=== PATIENT | female | born 1965 | race Caucasian/White ===

== ENCOUNTER → 2017-05-02 | Day surgery (SDC) | payer OTHER ==
[~2017-05-02] VITALS: Ht 162.6 cm; Wt 63.5 kg
[~2017-05-02] MED LIST: ALPR.5 PO; CHLORHEXIDINE GLUCONATE 2 % 1 PACK (2 CLOTHS) TOPICAL PRN; HYDR-3583 PO; HYDROmorphone HCL PF 1 MG/ML VIAL ONE; INSULIN HUMAN REGULAR 1,000 UNITS/10 ML VIAL SQ PRN; KETOROLAC TROMETHAMINE 30 MG/ML (IVP) VIAL ONE; LACTATED RINGER'S 1000 ML IV PRN; METOPROLOL TARTRATE 25 MG TAB PO PRN; MORPHINE SULFATE 4 MG/ML INJ ONE; ONDANSETRON HCL 4 MG/2 ML VIAL IV PUSH ONE; POVIDONE IODINE 5% (ANTISEPSIS KIT) 4 APPLICATIONS EACH NARE PRN; PROPOFOL 200 MG/20 ML AMP IV ONE; SODIUM CHLORID 0.9% 500 ML IV PRN; ceFAZolin 1,000 MG/NS 100 ML IV SCH
[2017-05-02 08:44] LABS: CHLORIDE 105 MEQ/L (98-107); HEMATOCRIT 45.2 % (35.0-46.0); HEMOGLOBIN 14.7 GM/DL (11.6-15.3); MEAN CELL VOLUME 85.4 FL (80.0-100.0); MEAN CORPUSCULAR HEMOGLOBIN 27.8 PG (27.0-34.0); MEAN CORPUSCULAR HGB CONC 32.6 % (32.0-36.0); MEAN PLATELET VOLUME 7.3 FL (7.0-11.0); PLATELET COUNT 268 TH/MM3 (150-450); RED BLOOD COUNT 5.29 MIL/MM3 (4.00-5.30); RED CELL DISTRIBUTION WIDTH 13.8 % (11.6-17.2); SODIUM (NA) 139 MEQ/L (136-145); WHITE BLOOD COUNT 7.2 TH/MM3 (4.0-11.0)
[2017-05-02 08:48] LABS: BLOOD UREA NITROGEN 12 MG/DL (7-18); CALCIUM 9.1 MG/DL (8.5-10.1); GLUCOSE,RANDOM 82 MG/DL (74-106)
[2017-05-02 08:51] LABS: ALT (GPT) 22 U/L (10-53); AST (GOT) 17 U/L (15-37); CREATININE 0.66 MG/DL (0.50-1.00); GLOMERULAR FILTRATION RATE 94 ML/MIN (>89)
[2017-05-02 08:53] LABS: TOTAL BILIRUBIN ADULT 0.3 MG/DL (0.2-1.0)
[2017-05-02 08:54] LABS: ALKALINE PHOSPHATASE 84 U/L (45-117)
[2017-05-02 09:08] LABS: BILIRUBIN, URINE NEG (NEG); BLOOD, URINE NEG (NEG); GLUCOSE,URINE NEG (NEG); KETONE, URINE NEG (NEG); NITRITE,URINE NEG (NEG); URINE LEUKOCYTE ESTERASE NEG (NEG)
[2017-05-02 09:19] LABS: AMORPHOUS SEDIMENT, URINE FEW; SQUAMOUS EPITHELIAL CELL URINE 0-5 /hpf (0-5); URINE COLOR YELLOW (YELLW/STRAW); WBC, URINE 0-2 /hpf (0-5)
[2017-05-02 10:10] VITALS: PULSE 67
--- NOTE | 2017-05-02 10:18 | PD.OP ---
Operative Report Date of Surgery: May 02, 2017 Preoperative Diagnosis: (1) CIS (carcinoma in situ of cervix) (2) Atypical glandular cells of undetermined significance (ELIAS) on cervical Pap smear Postoperative Diagnosis: (1) CIS (carcinoma in situ of cervix) (2) Atypical glandular cells of undetermined significance (ELIAS) on cervical Pap smear Procedure: Dilation and curettage with hysteroscopy, cold knife conization of the cervix. Anesthesia: LINETTE Valverde Surgeon: Melanie Parry Technical Services Rep(s): Mohamud Muñoz Surgeon: n/a Operation and Findings: Indications: [This patient is known from colposcopic biopsy to have CIS of the cervix. She also had ELIAS on pap smear.-] Findings: Patient was found on hysteroscopic view to have an atrophic appearing endometrium.-] Procedure: Patient was brought to the OR and laid supine on the table. After inducing general anesthesia she was positioned in low stirrups in dorso- lithotomy position. An open-sided speculum was placed in the vagina after Betadine prep and time out. The anterior lip of the cervix was grasped with a single tooth tenaculum, and the cervix was dilated to accept a standard rigid hysteroscope. After viewing the endometrium was the thoroughly sampled using a medium sharp curet. Small tissue returned. 0-Monocryl sutures were then placed and tied laterally on the cervix to aid visualization and maniopulation, as well as for hemostasis. A #11 blade with angeled handle was used to cut a wide cervical cone, which was the tagged at 12 o'clock with a silk suture. Endocervical curettage was collected, but was scant since the residual cervical canal was only about 1 cm deep. Cautery was then used but was not sufficient to produce hemostasis, so a Sturmdorf suture of 0- Monocryl was placed circomferentially, producing good hemostasis. The cervical defect was stuffed with Surgicell for further hemostasis. The procedure being complete, the instruments were removed, the patient was replaced supine and she was awakened. She was transferred to the PACU breathing on her own in stable condition. Sponge, needle, and instrument counts were correct. Melanie Parry MD May 02, 2017 10:18
[2017-05-02 12:05] VITALS: BP 133/88; PULSE 69; RESP 16; TEMP 97.9; O2SAT 97
--- NOTE | 2017-05-02 15:16 | EKG ---
Date Performed: 05/02/2017 Time Performed: 08:45:18 PTAGE: 51 years EKG: Sinus rhythm NORMAL ECG NO PREVIOUS TRACING DOCTOR: Dee Jensen Interpretating Date/Time 05/02/2017 15:15:40
--- NOTE | 2017-05-02 15:16 | EKG ---
Date Performed: 05/02/2017 Time Performed: 08:45:18 PTAGE: 51 years EKG: Sinus rhythm NORMAL ECG NO PREVIOUS TRACING DOCTOR: Dee Jensen Interpretating Date/Time 05/02/2017 15:15:40
--- NOTE | 2017-05-02 15:16 | EKG ---
Date Performed: 05/02/2017 Time Performed: 08:45:18 PTAGE: 51 years EKG: Sinus rhythm NORMAL ECG NO PREVIOUS TRACING DOCTOR: Dee Jensen Interpretating Date/Time 05/02/2017 15:15:40
== END | disposition home or self-care (01) ==
LOC: PHSDC 07:45
PROVIDERS: ATTEND Obstetrics & Gynecology
DX: D06.9 Carcinoma in situ of cervix, unspecified (principal); N88.2 Stricture and stenosis of cervix uteri; M54.5 Low back pain; M54.17 Radiculopathy, lumbosacral region; Z72.0 Tobacco use; Z01.810 Encounter for preprocedural cardiovascular examination
CPT/HCPCS: 00940; 36415; 57520; 80053; 81001; 85027; 88305; 88307; 93005; J0690; J1170; J1885; J2270; J2405; J3010; J7120

== ENCOUNTER 2017-06-18 07:30 | Observation (INO) | payer OTHER ==
[~2017-06-18] VITALS: Ht 162.6 cm; Wt 68.1 kg
[~2017-06-18 07:30] MED LIST changes: -CHLORHEXIDINE GLUCONATE 2 % 1 PACK (2 CLOTHS) TOPICAL PRN; -HYDROmorphone HCL PF 1 MG/ML VIAL ONE; -INSULIN HUMAN REGULAR 1,000 UNITS/10 ML VIAL SQ PRN; -KETOROLAC TROMETHAMINE 30 MG/ML (IVP) VIAL ONE; -LACTATED RINGER'S 1000 ML IV PRN; -METOPROLOL TARTRATE 25 MG TAB PO PRN; -MORPHINE SULFATE 4 MG/ML INJ ONE; -ONDANSETRON HCL 4 MG/2 ML VIAL IV PUSH ONE; -POVIDONE IODINE 5% (ANTISEPSIS KIT) 4 APPLICATIONS EACH NARE PRN; -PROPOFOL 200 MG/20 ML AMP IV ONE; -SODIUM CHLORID 0.9% 500 ML IV PRN; -ceFAZolin 1,000 MG/NS 100 ML IV SCH
[2017-06-18] MEDS ORDERED: CHLORHEXIDINE GLUCONATE 2 % 1 PACK (2 CLOTHS) TOPICAL PRN (09:15)
[2017-06-18] MEDS ORDERED: HEPARIN SODIUM - SQ 10,000 UNITS/ML VIAL SQ PRN (09:15)
[2017-06-18] MEDS ORDERED: POVIDONE IODINE 5% (ANTISEPSIS KIT) 4 APPLICATIONS EACH NARE PRN (09:15)
[2017-06-18] MEDS ORDERED: LACTATED RINGER'S 1000 ML IV PRN (09:15)
[2017-06-18] MEDS ORDERED: SODIUM CHLORID 0.9% 500 ML IV PRN (09:15)
[2017-06-18] MEDS ORDERED: INSULIN HUMAN REGULAR 1,000 UNITS/10 ML VIAL SQ PRN (09:15)
[2017-06-18] MEDS ORDERED: ceFAZolin 1,000 MG/NS 100 ML IV SCH ×2 (09:15)
[2017-06-18] MEDS ORDERED: METOPROLOL TARTRATE 25 MG TAB PO PRN (09:15)
[2017-06-18] MEDS ORDERED: LIDOCAINE 1%/EPINEPHrine 1:100,000 SOLN 50 ML VIAL ONE (11:46)
[2017-06-18] MEDS ORDERED: PHENYLEPHRINE HCL 10 MG/ML VIAL IV ONE (12:00)
[2017-06-18] MEDS ORDERED: GLYCOPYRROLATE 1 MG/5 ML SYRINGE IV PUSH ONE (12:00)
[2017-06-18] MEDS ORDERED: VECURONIUM BROMIDE 20 MG VIAL IV ONE (12:00)
[2017-06-18] MEDS ORDERED: NEOSTIGMINE 5 MG/5 ML SYRINGE IV PUSH ONE (12:00)
[2017-06-18] MEDS ORDERED: ROCURONIUM INJ 50 MG/5 ML SYRINGE IV PUSH ONE (12:00)
[2017-06-18] MEDS ORDERED: ePHEDrine/NS 25 MG/5 ML SYRINGE IV ONE (12:00)
[2017-06-18] MEDS ORDERED: PROPOFOL 200 MG/20 ML AMP IV ONE (12:00)
[2017-06-18] MEDS ORDERED: LIDOCAINE HCL 1% PF 5 ML SYRINGE OTHER ONE (12:00)
[2017-06-18] MEDS ORDERED: STERILE WATER FOR INJECTION 20 ML VIAL IV ONE (12:00)
[2017-06-18] MEDS ORDERED: PHENYLEPH/NS 1000 MCG/10 ML SYR IV ONE (12:00)
[2017-06-18] MEDS ORDERED: ONDANSETRON HCL 4 MG/2 ML VIAL IV ONE (12:00)
[2017-06-18] MEDS ORDERED: DEXAMETHASONE SOD PHOS 4 MG/ML VIAL IV ONE (12:00)
[2017-06-18] MEDS ORDERED: NORMOSOL R INJ 1,000 ML IV ONE (12:00)
[2017-06-18] MEDS ORDERED: KETOROLAC TROMETHAMINE 30 MG/ML (IVP) VIAL IV PUSH ONE (12:00)
[2017-06-18] MEDS ORDERED: HYDROmorphone HCL PF 2 MG/ML VIAL ONE (12:28)
[2017-06-18] MEDS ORDERED: METHYLENE BLUE 10 MG/ML VIAL OTHER ONE (15:00)
[2017-06-18] MEDS ORDERED: ONDANSETRON HCL 4 MG/2 ML VIAL IVP PRN (15:39)
[2017-06-18] MEDS ORDERED: diphenhydrAMINE HCL 25 MG CAP PO PRN (15:39)
[2017-06-18] MEDS ORDERED: oxyCODONE/ACETAMINOPHEN 5 MG/325 MG TAB PO PRN (15:45)
[2017-06-18] MEDS ORDERED: SODIUM CHLORIDE 0.9% FLUSH 10 ML FLUSH IV FLUSH PRN (15:45)
[2017-06-18] MEDS ORDERED: LORazepam 0.5 MG TAB PO PRN (15:45)
[2017-06-18] MEDS ORDERED: DO NOT ADM ANY ANTICOAGULANT DRUGS PRN (15:53)
[2017-06-18] MEDS: D5-1/2 NS + KCL 20 MEQ INJ 1,000 ML IV SCH (16:27)
[2017-06-18] MEDS: KETOROLAC TROMETHAMINE 30 MG/ML (IVP) VIAL IVP SCH ×2 (16:27→21:09)
[2017-06-18 19:04] VITALS: BP 109/69; PULSE 70; RESP 15; TEMP 97.1; O2SAT 10
[2017-06-18] MEDS: SODIUM CHLORIDE 0.9% FLUSH 10 ML FLUSH IV FLUSH SCH (20:02)
[2017-06-18 20:15] VITALS: BP 119/83; PULSE 80; RESP 16; TEMP 97.7; O2SAT 98
[2017-06-18] MEDS: oxyCODONE/ACETAMINOPHEN 5 MG/325 MG TAB PO PRN (22:59)
[2017-06-18 23:00] VITALS: PULSE 64
[2017-06-18 23:04] VITALS: BP 111/69; PULSE 78; RESP 16; TEMP 99; O2SAT 98
[2017-06-19 03:46] VITALS: BP 115/79; PULSE 89; RESP 16; TEMP 99.4; O2SAT 96
[2017-06-19] MEDS: oxyCODONE/ACETAMINOPHEN 5 MG/325 MG TAB PO PRN ×2 (03:49→08:07)
[2017-06-19] MEDS: D5-1/2 NS + KCL 20 MEQ INJ 1,000 ML IV SCH (03:50)
[2017-06-19] MEDS: KETOROLAC TROMETHAMINE 30 MG/ML (IVP) VIAL IVP SCH ×2 (05:13→10:07)
[2017-06-19 07:00] VITALS: PULSE 60
[2017-06-19] MEDS ORDERED: HYDR-3583 PO (07:00)
[2017-06-19] MEDS: SODIUM CHLORIDE 0.9% FLUSH 10 ML FLUSH IV FLUSH SCH (07:43)
[2017-06-19 07:44] VITALS: BP 106/73; PULSE 69; RESP 18; TEMP 98.1; O2SAT 98
[2017-06-19 11:15] LABS: AUTOMATED NEUTROPHIL # 7.5 TH/MM3 (1.8-7.7); BASOPHIL % 0.2 % (0.0-2.0); EOSINOPHIL % 0.4 % (0.0-4.0); HEMATOCRIT 37.9 % (35.0-46.0); HEMO FLAGS DIFF FINAL; LYMPH % 16.6 % (9.0-44.0); LYMPHOCYTE # 1.6 TH/MM3 (1.0-4.8); MEAN CELL VOLUME 87.1 FL (80.0-100.0); MEAN CORPUSCULAR HEMOGLOBIN 29.3 PG (27.0-34.0); MEAN CORPUSCULAR HGB CONC 33.7 % (32.0-36.0); MONO % 7.3 % (0.0-8.0); NEUT % 75.5 % (16.0-70.0); PLATELET COUNT 259 TH/MM3 (150-450); RED BLOOD COUNT 4.36 MIL/MM3 (4.00-5.30); WHITE BLOOD COUNT 9.9 TH/MM3 (4.0-11.0)
[2017-06-19 11:29] LABS: BICARBONATE 23.9 MEQ/L (21.0-32.0)
--- NOTE | 2017-06-19 22:51 | MP ---
cc: INA FRANCO MD, KELLY L. 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 PROCEDURE Robotic-assisted laparoscopic hysterectomy bilateral salpingo-oophorectomy. SURGEON Blair Santoyo MD [employer] HELPER Wayne technician assistant ANESTHESIA General endotracheal anesthesia ESTIMATED BLOOD LOSS 100 mL URINE OUTPUT 200 mL IV FLUIDS 1700 mL. INDICATIONS A 51-year-old female status post a LEEP procedure which showed microinvasive squamous cell carcinoma of the cervix. Margins were negative. She has been counseled extensively and presents now for surgical management. She is seen in the preop holding area accompanied by her and daughter where again the findings and plan of care are reviewed. Questions were asked and answered. They expressed good understanding and she wished to move forward with surgery. FINDINGS At the time of surgery, the cervix is flush with the vaginal apex and has some scarring consistent with prior LEEP procedure. Cervical os was able to be identified and the uterine cavity sounded to 6 cm. The tubes and ovaries grossly appeared normal. The uterus grossly appeared normal. There was good mobility to the uterus and cervix. There was no nodularity in the parametria. There was no grossly visible or palpable tumor that persisted in the cervix and no appreciably enlarged pelvic or para-aortic lymph nodes. The peritoneal surfaces were smooth without evidence of any tumor implants or other significant finding. PROCEDURE She was taken to the operating room, placed in dorsal lithotomy position. After general endotracheal anesthesia was administered, time-out was undertaken. She was identified by sight recognition and hospital ID bracel and the proposed procedure was reviewed and confirmed. She was carefully positioned in padded Rolando stirrups. Her arms were padded and secured to the sides. She was further secured to the operating table with egg crate padding and tape in across chest over the shoulder fashion. All sites noted to be properly aligned with no malalignments or pressure points. She was prepped, draped sterile fashion, placed in lithotomy position. Exam was performed. The cervix was grasped using a lacrimal probe. The cervical os was able to be identified and the cervix was dilated to the point to allow uterine sound where it sounded at 6 cm. The cervix was further dilated and a standard V-Care manipulator was inserted and secured in usual fashion. Mays catheter placed in the bladder. She was returned to low lithotomy position, change of sterile gloves was undertaken. We completed draping in anticipation of laparoscopy, confirmed that an orogastric tube was in the stomach on suction. With manual elevation of the abdominal wall direct laparoscopic visualization 5 mm cannula was introduced into the left upper quadrant and an atraumatic entry was confirmed. Carbon dioxide gas was insufflated and then under direct laparoscopic guidance a 12-mm cannula placed in midline above the umbilicus, 8 mm cannula was placed in the right upper quadrant, left lateral quadrant and the original 5 exchanged for an 8-mm cannula. She was placed in Trendelenburg position. The anatomy was surveyed with findings as described above. The small bowel was folded back on its mesenteric root. Three Ray-Celia sponges were placed around the root of the small bowel mesentery and the robotic system was brought into the operative field and attached in the usual fashion. Monopolar scissors, fenestrated bipolar forceps and Prograsp manipulators were placed in arms #1, 2 and 3 respectively and I took my place at the surgeon's console. Right round ligament isolated, cauterized, transected. The anterior and posterior leafs of the broad ligament were opened. Right ureter was identified. The right infundibulopelvic ligament was isolated. The intervening peritoneum was opened. Infundibulopelvic ligament was cauterized at the level of the pelvic brim and transected. The posterior peritoneum opened along the right side of the uterus and cervix, right vesicouterine peritoneum dissected off the lower uterine segment and cervix. The right uterine vessels were skeletonized, cauterized and transected as were the cardinal, paracervical and uterosacral ligaments. Attention was directed toward the left side. Mild adhesions were taken down to mobilize the colon. The left round ligament was isolated, cauterized, transected. The anterior and posterior leafs of the broad ligament were opened. Left ureter was identified. Left infundibulopelvic ligament was isolated. The intervening peritoneum was opened. The infundibulopelvic ligament was isolated and cauterized at the level of the pelvic brim and transected. Posterior peritoneum opened along the left side of the uterus and cervix. The left vesicouterine peritoneum dissected off the lower uterine segment and cervix. Left uterine vessels were skeletonized. They were cauterized and transected as were the cardinal, paracervical and uterosacral ligaments. Circumferential colpotomy was performed the cervix from the upper vagina. The specimen was withdrawn transvaginally which included uterus, cervix, tubes and ovaries and a pneumo-occluder balloon was placed in the vagina to maintain pneumoperitoneum. Instruments 1 and 3 exchanged for needle drivers as a 0 Vicryl suture was introduced. The vaginal cuff was closed starting at the left where full-thickness closure including the posterior peritoneum and edge of the uterosacral ligament tied via instrument tie. The closure was held on counter traction as a running continuous full-thickness closure was carried across the vaginal apex to the contralateral corner where it was similarly fixed, secured, tied via instrument tie. The needle was cut and removed. Pelvis was thoroughly irrigated. Small bleeders were rendered hemostatic with bipolar cautery. The integrity of the bladder was confirmed by filling the bladder with saline dyed with methylene blue. The bladder distended nicely under pressure. There were no areas thinning to the bladder. Certainly no extravasation of dye. There was a good margin between the vaginal cuff suture line and the bladder and the bladder was drained. Good peristalsis of ureters bilaterally. It was felt that all reasonable surgical objectives had been completed. The robotic instruments were removed. The robotic system was disengaged from the operative field. I reentered the bedside under sterile condition. Each of the three Ray-Celia sponges that had been placed were removed. They were each removed individually and inspected and noted to be removed in their entirety. Visual inspection of the peritoneal cavity confirmed hemostasis. There were no remaining foreign objects in the peritoneal cavity. Preliminary counts were correct. A 12-mm fascial defect was closed using a fascia closure device, 0 Vicryl suture tied securely. This rendered the fascia completely airtight and hemostatic. The remaining cannulas were withdrawn. Carbon dioxide gas was removed from the peritoneal cavity. 3-0 Vicryl subcutaneous, 3-0 Vicryl subcuticular and Steri-Strips used to close these incisions. She was returned to lithotomy position. Exam confirmed that the vaginal cuff suture line was intact and hemostatic. There was no bleeding. No vaginal laceration. Sidewall irritation was secured for hemostasis with topical silver nitrate. There were no remaining foreign objects in the vagina. Final counts were correct. She was returned to dorsal supine position and was pending reversal of anesthesia when I left the operating room to precede her to the Post Anesthesia Care Unit. MD JAYLYN Davis/ /7:04 AM /10:27 PM
--- NOTE | 2017-06-24 18:34 | MD ---
cc: INA FRANCO MD,YEFRI SHI,ANAHI Colvin MD ADMISSION DATE: 06/18/2017 DISCHARGE DATE: 06/19/2017 PROCEDURE 06/18/2017 robotic-assisted laparoscopic hysterectomy and bilateral salpingo-oophorectomy. 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 HOSPITAL COURSE She did well in early postop period. Remained hemodynamically stable, afebrile, tolerating oral intake. Mays catheter removed pending voiding. In's and out's 3000 / 1000. Labs are pending. PHYSICAL EXAMINATION VITAL SIGNS: Afebrile, pulse 64-80, respirations 15-18, blood pressure 103-119 over 67-83. O2 saturations greater than or equal to 96%. GENERAL: Alert and oriented x3 in no acute distress. LUNGS: Are clear. Mild basilar rales. CARDIOVASCULAR: Regular rate and rhythm. PELVIC: Incisions clean and dry. GYNECOLOGIC: No bleeding. EXTREMITIES: Nontender. ASSESSMENT Postop day #1 doing well in early postop period. Findings, preliminary review of pathology. Activities restrictions discussed. Questions were answered. She expressed good understanding. PLAN Anticipate discharge to home today. She is to resume prior medications. She has a prescription for Percocet for pain. She is to call our office to schedule follow up in 2-3 weeks and our office number is again made available should she have any questions or problems between now and the time of scheduled followup. Yefri Santoyo MD KM/KK /7:01 AM /6:06 PM
== END 2017-06-19 12:45 | disposition home or self-care (01) ==
LOC: EDSTATUS 07:30 → INTOOBSV 08:17 → HSDI 08:17 → HCIN 18:54
PROVIDERS: ADMIT Obstetrics & Gynecology Gynecologic Oncology; ATTEND Obstetrics & Gynecology Gynecologic Oncology
DX: C53.9 Malignant neoplasm of cervix uteri, unspecified (principal)
CPT/HCPCS: 00840; 58552; 80048; 85025; 86850; 86900; 86901; 88309; 94150; 96361; 96374; 96376; G0378; J0690; J1100; J1644; J1885; J2370; J2405; J2710; J3480; J7120; 88307; J1170